=== PATIENT | male | born 1965 | race Caucasian/White ===

== ENCOUNTER 2019-01-28 05:01 | Emergency (ER) | payer OTHER ==
--- NOTE | 2019-01-28 05:32 | PDOC ---
History of Present Illness - General Stated Complaint: PAIN Time Seen by Provider: 01/28/19 05:32 Past History - Past Medical History Allergies/Adverse Reactions: Allergies Allergy/AdvReac Type Severity Reaction Status Date / Time No Known Allergies Allergy Verified 08/18/18 14:04 Home Medications: Ambulatory Orders Atorvastatin Ca [Lipitor] 40 mg PO HS 08/18/18 Ferrous Sulfate 325 mg PO BID 08/18/18 Multivitamin [Multiple Vitamins] 1 each PO DAILY 08/18/18 Pantoprazole Sodium [Protonix -] 40 mg PO DAILY 08/18/18 Warfarin Na [Coumadin] 2.5 mg PO DAILY 08/18/18 Thiamine HCl [Vitamin B1 -] 100 mg PO DAILY #30 tablet 09/10/18 Enalapril Maleate [Vasotec -] 2.5 mg PO DAILY 10/14/18 Mirtazapine [Remeron -] 15 mg PO HS #30 tablet 10/14/18 Bupropion HCl [Wellbutrin Sr] 150 mg PO DAILY 11/10/18 Baclofen [Lioresal -] 10 mg PO BID #60 tablet 01/19/19 Buprenorphine HCl/Naloxone HCl [Suboxone 12 mg-3 mg Sl Film] 1 each SL DAILY # 15 packet MDD 1 01/19/19 Gabapentin 300 mg PO TID #90 capsule 01/19/19 Lidocaine HCl [Aspercreme] 76.5 gm TP TID PRN #1 tube 01/19/19 Acetaminophen W/ Codeine #3 [Tylenol # 3 -] 1 tab PO Q6H PRN #5 tablet MDD 4 Anemia: Yes Asthma: No Cancer: No Cardiac Disorders: No CVA: No COPD: No CHF: No Diabetes: No GI Disorders: No Disorders: No HTN: No Hypercholesterolemia: No Liver Disease: No Seizures: No Thyroid Disease: No - Surgical History Lung Surgery: Yes (chest tube july 2018 for PE) - Suicide/Smoking/Psychosocial Hx Smoking History: Former smoker Have you smoked in the past 12 months: No Hx Alcohol Use: Yes Drug/Substance Use Hx: Yes Substance Use Type: Alcohol, Opiates Hx Substance Use Treatment: Yes Medical Decision Making - Medical Decision Making 53yo M with PMH of pulmonary embolism, anemia, 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 arm pain. Patient had this pain for the first time on 12/24 and has followed up with neurology for evaluation of pinched nerve. Patient had an MRI two days ago but is unsure of the result. He reported being given tramadol but threw it away as he believes he cannot take it with his suboxone. Heating pads used to provide relief, but not yesterday when he tried it. He has taken baclofen and gabapentin. Pain is currently rated 8-9/10. Patient is seeking medical management as he wants to avoid surgery if possible. Denies saddle anesthesia, significant weight loss, history of cancer or IVDU, or urinary/fecal incontinence. No fever, chills, or night sweats. ROS: Constitutional: no fever, no chills HEENT: no throat pain, no dysphagia Cardiovascular: no chest pain, no palpitations Respiratory: no cough, no shortness of breath Gastrointestinal: no abdominal pain, no nausea Genitourinary: no dysuria, no hematuria Musculoskeletal: +back pain, +R. arm pain Skin: no rash, no itching Neurologic: no headache, no weakness PE: General: Awake, alert, and fully oriented, in no acute distress Head: No signs of trauma Eyes: EOMI, sclera anicteric ENT: Moist mucus membranes Neck: Normal ROM, supple Lungs: Lungs clear, Normal breath sounds Cardio: Regular rhythm, S1 and S2 present Abdomen: Soft, nontender. No guarding, no rebound, no masses Extremities: Normal range of motion, Distal pulses present SKIN: Warm, Dry, normal turgor Neurologic: Cranial nerves II through XII intact. Normal speech, sensation, strength, coordination, and gait. 2+ patellar reflexes. Back: Tender to palpation in along C7-C8, midline, no step-offs/deformities/ fluctuance; no overlying wound or lesion; negative straight leg test bilaterally ; patient with pain in RUE but has normal range of motion ED Course/MDM: DDX including but not limited to radiculopathy, pinched nerve, cauda equina, herniated disc I have low suspicion for acute pathology given lack of red flag back symptoms 01/28/19 05:49 01/28/19 05:51 Spoke with pharmacy Tylenol with codeine is not contraindicated for patients who take suboxone Patient has appointment to see paint brush maker this week Prescription sent to pharmacy by Dr. Chamorro Discharged with return precautions *DC/Admit/Observation/Transfer Diagnosis at time of Disposition: Right upper limb pain - Discharge Dispostion Disposition: HOME Condition at time of disposition: Stable - Prescriptions Prescriptions: Acetaminophen W/ Codeine #3 [Tylenol # 3 -] 1 tab PO Q6H PRN #5 tablet MDD 4 PRN Reason: Pain Level 6-10 - Referrals Referrals: Chet Gamez [Primary Care Provider] - - Patient Instructions Printed Discharge Instructions: DI for Neck Pain Additional Instructions: You came to the emergency department for pain in your neck and right arm. Prescription sent to your pharmacy. Take as instructed. You can also take regular tylenol as needed for your pain. Make sure you do not take too much tylenol. The maximum daily dose is 4000mg. Follow up with your primary care doctor or paint brush maker this week to discuss this visit and further assess your symptoms. Your workup is not complete until you do so. Immediate medical attention is required if you have neck/back pain and : numbness in the genital or rectal area, loss of bowel or bladder control, difficulty with urination; fever, unexplained weight loss, or other signs of illness or infection. If you think you are having an emergency, call for emergency medical services or present to the emergency department right away. - Post Discharge Activity
--- NOTE | 2019-01-28 05:48 | PDOC ---
Attending Attestation - Resident Resident Name: iVv Pereira - ED Attending Attestation I have performed the following: I have examined & evaluated the patient, The case was reviewed & discussed with the resident, I agree w/resident's findings & plan, Exceptions are as noted
[2019-01-28 06:11] VITALS: TEMP 98.1; BMI 21.8
[2019-01-28] MEDS ORDERED: ACETAMINOPHEN WITH CODEINE 300MG/30MG TABLET PO ONE (06:21)
[2019-01-28] MEDS ORDERED: ACETAMINOPHEN WITH CODEINE 300MG/30MG TABLET ONE (06:49)
[2019-01-28 07:06] VITALS: BP 142/100; PULSE 62
== END 2019-01-28 07:00 | disposition home or self-care (01) ==
LOC: JER 05:01
DX: M79.601 Pain in right arm (principal); F11.20 Opioid dependence, uncomplicated; D64.9 Anemia, unspecified; Z86.711 Personal history of pulmonary embolism; Z79.01 Long term (current) use of anticoagulants
CPT/HCPCS: 99281-25

== ENCOUNTER 2019-01-31 13:41 | Emergency (ER) | payer OTHER ==
[2019-01-31 14:00] VITALS: BP 115/86; PULSE 89; TEMP 98.2; BMI 21.7
--- NOTE | 2019-01-31 15:20 | PDOC ---
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 arm pain. Patient had this pain for the first time on 12/24 and has followed up with neurology for evaluation of pinched nerve. Patient had an MRI but is unsure of the result. Patient was seen and evaluated here 01/28 and given a prescription for Tylenol 3 which helped relieve his pain. He has taken baclofen and gabapentin. Pain is currently rated 8-9/10. Patient is seeking medical management as he wants to avoid surgery if possible. Denies saddle anesthesia, significant weight loss, history of cancer or IVDU, or urinary/ fecal incontinence. No fever, chills, or night sweats. Patient has appointment with pain management 02/01 and appointment with neurologist 02/03. No recent travel or sick contacts. PAST MEDICAL HISTORY: see HPI SURGICAL HISTORY: Denies ALLERGIES: No known drug allergies REVIEW OF SYSTEMS General/Constitutional: Denies fever or chills. Denies weakness, weight change. HEENT: Denies change in vision. Denies ear pain or discharge. Denies sore throat. Cardiovascular: Denies chest pain or shortness of breath. Respiratory: Denies cough, wheezing, or hemoptysis. Gastrointestinal: Denies nausea, vomiting, diarrhea or constipation. Denies rectal bleeding. Genitourinary: Denies dysuria, frequency, or change in urination. Musculoskeletal: see HPI Skin and breasts: Denies rash or easy bruising. Neurologic: see HPI Psychiatric: Denies depression or anxiety. Endocrine: Denies increased thirst. Denies abnormal weight change. Hematologic/Lymphatic: Denies anemia, easy bleeding, or history of blood clots. Allergic/Immunologic: Denies hives or skin allergy. Denies latex allergy. PHYSICAL EXAM General Appearance: Well-appearing, appropriately dressed. No apparent distress , no intoxication. Neck: Supple. Trachea midline. No tenderness, rigidity, carotid bruit, stridor , lymphadenopathy, or thyromegaly. Respiratory/Chest: Lungs CTAB. No shortness of breath, chest tenderness, respiratory distress, accessory muscle use. No crackles, rales, rhonchi, stridor , wheezing, dullness Cardiovascular: RRR. S1, S2. No JVD, murmur, bradycardia, tachycardia. Musculoskeletal/Extremities: Normal inspection. Limited ROM of RUE. Normal capillary refill. Pelvis Stable. No CVA tenderness. No tenderness to extremities, pedal edema, swelling, erythema or deformity. 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 Fully oriented, alert. Appropriate mood/affect. Motor strength 5/5. No appreciable EOM palsy, facial droop or sensory deficit. 01/31/19 15:35 Past History - Past Medical History Allergies/Adverse Reactions: Allergies Allergy/AdvReac Type Severity Reaction Status Date / Time No Known Allergies Allergy Verified 01/31/19 14:01 Home Medications: Ambulatory Orders Atorvastatin Ca [Lipitor] 40 mg PO HS 08/18/18 Ferrous Sulfate 325 mg PO BID 08/18/18 Multivitamin [Multiple Vitamins] 1 each PO DAILY 08/18/18 Pantoprazole Sodium [Protonix -] 40 mg PO DAILY 08/18/18 Warfarin Na [Coumadin] 2.5 mg PO DAILY 08/18/18 Thiamine HCl [Vitamin B1 -] 100 mg PO DAILY #30 tablet 09/10/18 Enalapril Maleate [Vasotec -] 2.5 mg PO DAILY 10/14/18 Mirtazapine [Remeron -] 15 mg PO HS #30 tablet 10/14/18 Bupropion HCl [Wellbutrin Sr] 150 mg PO DAILY 11/10/18 Baclofen [Lioresal -] 10 mg PO BID #60 tablet 01/19/19 Buprenorphine HCl/Naloxone HCl [Suboxone 12 mg-3 mg Sl Film] 1 each SL DAILY # 15 packet MDD 1 01/19/19 Gabapentin 300 mg PO TID #90 capsule 01/19/19 Lidocaine HCl [Aspercreme] 76.5 gm TP TID PRN #1 tube 01/19/19 Acetaminophen W/ Codeine #3 [Tylenol # 3 -] 1 tab PO Q6H PRN #5 tablet MDD 4 Acetaminophen W/ Codeine #3 [Tylenol # 3 -] 1 tab PO Q6H #3 tablet MDD 3 Anemia: Yes Asthma: No Cancer: No Cardiac Disorders: No CVA: No COPD: No CHF: No Diabetes: No Dialysis: Yes GI Disorders: No Disorders: No HTN: No Hypercholesterolemia: No Liver Disease: No Seizures: No Thyroid Disease: No - Surgical History Lung Surgery: Yes (chest tube july 2018 for PE) - Immunization History Immunization Up to Date: Yes - Suicide/Smoking/Psychosocial Hx Smoking History: Unknown if ever smoked Have you smoked in the past 12 months: No Number of Cigarettes Smoked Daily: 10 Information on smoking cessation initiated: No Hx Alcohol Use: No Drug/Substance Use Hx: No Substance Use Type: Alcohol, Opiates Hx Substance Use Treatment: Yes *Physical Exam - Vital Signs Last Vital Signs Temp Pulse Resp BP Pulse Ox 98.2 F 89 16 115/86 98 01/31/19 13:57 01/31/19 13:57 01/31/19 13:57 01/31/19 13:57 01/31/19 13:57 Medical Decision Making - Medical Decision Making 01/31/19 15:26 A/P: 53-year-old male with continued right-sided neck pain radiating to his right arm. Patient was seen and evaluated 3 days ago was given a prescription for Tylenol 3 for 5 doses. Patient reports Tylenol 3. His pain decreased to a 6/10 which she describes as tolerable. Patient reports she has an appointment with his interventional pain physician at 1:00 tomorrow. MRI performed 01/26/19 reveals multilevel mild disc bulge and emergency communications dispatcher vertebral hypertrophy with narrowing of the left foramen at C4/C5 level and likely slightly impinging of left C5 nerve root, slight narrowing of the left foramen at C5-C6 level without gross nerve root impingement, narrowing of foramen at C6/ C7 level right more than left likely impinging right C7 nerve root and moderate narrowing of the right foramen at C7-T1 likely impinging right C8 nerve root I-STOP as follows: Patient Name: Jordin Gonzales Date: 1965 Address: [address] [place] [address] [address] [place] [id number] Sex: Male Rx Written Rx Dispensed Drug Quantity Days Supply Prescriber Name 01/28/2019 01/28/2019 acetaminophen-cod #3 tablet 5 2 Maikol Chamorro) 01/14/2019 01/14/2019 tramadol hcl 50 mg tablet 45 15 Chet Gamez Patient Name: Shawn Gonzales Date: 1965 Address: [address] [place] [address] Sex: Male Rx Written Rx Dispensed Drug Quantity Days Supply Prescriber Name 01/19/2019 01/19/2019 buprenorphine-naloxone 12-3 mg sl film 15 15 Kait Salazar NP, PHD 01/06/2019 01/06/2019 buprenorphine-naloxone 12-3 mg sl film 15 15 Kait Salazar NP, PHD 12/23/2018 12/23/2018 buprenorphine-naloxone 12-3 mg sl film 15 15 Kait Salazar NP, PHD 12/09/2018 12/09/2018 buprenorphine-naloxone 12-3 mg sl film 15 15 Kait Salazar NP, PHD 11/25/2018 11/25/2018 buprenorphine-naloxone 12-3 mg sl film 15 15 Kait Salazar NP, PHD 11/10/2018 11/10/2018 buprenorphine-naloxone 12-3 mg sl film 15 15 Kait Salazar NP, PHD 10/28/2018 10/30/2018 buprenorphine-naloxone 12-3 mg sl film 13 13 Kait Salazar NP, PHD 10/14/2018 10/15/2018 buprenorphine-naloxone 12-3 mg sl film 15 15 Kait Salazar NP, PHD 10/07/2018 10/07/2018 buprenorphine-naloxone 12-3 mg sl film 8 8 Kait Salazar NP, PHD 09/29/2018 10/01/2018 buprenorphine-naloxone 12-3 mg sl film 8 8 Kait Salazar NP, PHD 09/22/2018 09/23/2018 buprenorphine-naloxone 12-3 mg sl film 7 7 Kait Salazar NP, PHD 09/16/2018 09/16/2018 buprenorphine-naloxone 12-3 mg sl film 7 7 Kait Salazar NP, PHD 09/10/2018 09/10/2018 buprenorphine-naloxone 12-3 mg sl film 7 7 Kait Salazar NP, PHD 09/03/2018 09/03/2018 buprenorphine-naloxone 12-3 mg sl film 8 8 Kait Salazar NP, PHD 08/30/2018 08/30/2018 buprenorphine-naloxone 8-2 mg sl film 7 7 Rosa Avendano NP 08/26/2018 08/26/2018 buprenorphine-naloxone 2-0.5 mg sl film 14 7 Kait Salazar NP, PHD 08/20/2018 08/20/2018 buprenorphine-naloxone 8-2 mg sl film 8 8 Kait Salazar OIL AND GAS SUPERINTENDENT, PHD Decadron 10 mg orally now Prescription for Tylenol #3-3 tablets to give patient moderate pain relief until he can be evaluated by pain management tomorrow. Portions of this note have been documented using voice recognition software. As a result, errors may occur in the prevention rn process. Effort has been made to correct all grammatical and prevention rn error, but some may have been missed. *DC/Admit/Observation/Transfer Diagnosis at time of Disposition: Radiculopathy affecting upper extremity - Discharge Dispostion Disposition: HOME Condition at time of disposition: Stable Decision to Admit order: No - Prescriptions Prescriptions: Acetaminophen W/ Codeine #3 [Tylenol # 3 -] 1 tab PO Q6H #3 tablet MDD 3 - Referrals Referrals: Izzy Leal MD [Primary Care Provider] - - Patient Instructions Additional Instructions: You came to the emergency department for pain in your neck and right arm. Prescription sent to your pharmacy. Take as instructed. You can also take regular tylenol as needed for your pain. Make sure you do not take too much tylenol. The maximum daily dose is 4000mg. Follow up with your primary care doctor or interventional pain physician this week to discuss this visit and further assess your symptoms. Your workup is not complete until you do so. Immediate medical attention is required if you have neck/back pain and : numbness in the genital or rectal area, loss of bowel or bladder control, difficulty with urination; fever, unexplained weight loss, or other signs of illness or infection. If you think you are having an emergency, call for emergency medical services or present to the emergency department right away. - Post Discharge Activity
[2019-01-31] MEDS ORDERED: DEXAMETHASONE 4 MG TABLET (FP) PO ONE (15:27)
[2019-01-31] MEDS ORDERED: DEXAMETHASONE SOD PHOSPHATE 10 MG/1 ML VIAL ONE (15:30)
== END 2019-01-31 15:35 | disposition home or self-care (01) ==
LOC: JERFT 13:41
DX: M54.12 Radiculopathy, cervical region (principal); I26.99 Other pulmonary embolism without acute cor pulmonale; N28.9 Disorder of kidney and ureter, unspecified; D64.9 Anemia, unspecified; Z79.899 Other long term (current) drug therapy; Z99.2 Dependence on renal dialysis
CPT/HCPCS: 99281-25